=== PATIENT | female | born 1945 | race Caucasian/White ===

== ENCOUNTER 2022-09-21 08:00 | Outpatient (CLI) | payer BC, MEDICARE ==
[2022-09-21 18:40] LABS: BASOPHILS % (AUTO) 0.6 %; EOSINOPHILS # (AUTO) 0.1 10^3/uL (0.0-0.7); EOSINOPHILS % (AUTO) 1.6 %; HCT - HEMATOCRIT 40.8 % (37.0-47.0); HGB - HEMOGLOBIN 12.6 g/dL (12.0-16.0); LYMPHOCYTES # (AUTO) 1.3 10^3/uL (1.5-3.5); LYMPHOCYTES % (AUTO) 18.6 %; MEAN CORPUSCULAR HEMOGLOBIN 28.9 pg (27.0-31.0); MEAN CORPUSCULAR HGB CONC 30.9 g/dL (32.0-36.0); MEAN CORPUSCULAR VOLUME 93.6 fL (81.0-99.0); MEAN PLATELET VOLUME 10.4 fL (7.9-10.8); MONOCYTES # (AUTO) 0.6 10^3/uL (0.0-1.0); MONOCYTES % (AUTO) 9.2 %; NEUTROPHILS # (AUTO) 4.7 10^3/uL (1.5-6.6); NEUTROPHILS % (AUTO) 69.6 %; PLT - PLATELET COUNT 317 10^3/uL (130-450); RED BLOOD COUNT 4.36 10^6/uL (4.20-5.40); RED CELL DISTRIBUTION WIDTH 14.6 % (12.0-15.0); WHITE BLOOD COUNT 6.8 x10^3/uL (4.8-10.8)
[2022-09-21 19:00] LABS: ALBUMIN/GLOBULIN RATIO 1.1 (1.0-2.2); ALKALINE PHOSPHATASE 54 IU/L (42-121); ALT ALANINE AMINOTRANSFERASE 34 IU/L (10-60); AST ASPARTATE AMINOTRANSFERASE 33 IU/L (10-42); BILIRUBIN,TOTAL 1.1 mg/dL (0.2-1.0); BUN - BLOOD UREA NITROGEN 17 mg/dL (6-20); CALCIUM 8.9 mg/dL (8.5-10.3); CARBON DIOXIDE - CO2 25 mmol/L (21-32); CHLORIDE 103 mmol/L (101-111); CHOL/HDL RATIO 4.5 (<4.4); CHOLESTEROL 153 mg/dL; CREATININE 0.9 mg/dL (0.4-1.0); GFR - MDRD 61 (>89); GLUCOSE 115 mg/dL (70-100); HDL CHOLESTEROL 34 mg/dL; LDL CHOLESTEROL,CALCULATED 107 mg/dL; LDL/HDL RATIO 3.1 (<4.4); POTASSIUM 4.3 mmol/L (3.5-5.0); SODIUM 137 mmol/L (135-145); TOTAL PROTEIN 7.5 g/dL (6.7-8.2); TRIGLYCERIDES 62 mg/dL; VLDL CHOLESTEROL 12 mg/dL
[2022-09-21 19:12] LABS: THYROID STIMULATING HORMONE 1.56 uIU/mL (0.34-5.60)
== END 2022-09-21 23:59 | disposition home or self-care (01) ==
LOC: LAB.N 08:00
PROVIDERS: ATTEND Physician Assistant
DX: Z00.00 Encounter for general adult medical examination without abnormal findings (principal); R60.0 Localized edema
CPT/HCPCS: 36415; 80053; 80061; 83721; 84443; 85025

== ENCOUNTER 2022-09-25 16:48 | Inpatient (IN) | payer MEDICARE ==
[2022-09-25] MEDS ORDERED: diltiaZEM INJ 5 MG/ML VIAL IVP STA ×2 (17:44→18:09)
[2022-09-25] MEDS ORDERED: FUROSEMIDE 20 MG/2 ML VIAL IVP STA (17:44)
--- NOTE | 2022-09-25 17:46 | ED Physician Documentation ---
History of Present Illness - Stated complaint Stated Complaint: SOA/DEHYDRATED - Chief complaint Chief Complaint: General - Additonal information Additional information: 77-year-old female comes to the emergency department for evaluation of feeling dehydrated as well as lower extremity swelling. States that about 1 week ago she began having swelling in her lower legs. She thought that she was dehydrated because she was having pain behind her kidneys and when she would urinate she did not feel like it was a forceful stream. She would have to urinate very frequently thereafter about 45 minutes to an hour. She went to a local walk-in clinic with unremarkable labs a few days ago but given the persistence of symptoms, worsening lower extremity swelling and exertional dyspnea she comes to the ER today. Patient takes no prescribed medications. Has not been seen by a doctor in over 10 years. Non-smoker. Denies any history of heart failure. Denies chest pain. Review of Systems Constitutional: denies: Fever, Chills Cardiac: reports: Pedal edema. denies: Chest pain / pressure Respiratory: reports: Dyspnea. denies: Cough, Hemoptysis, Wheezing GI: denies: Abdominal Pain : reports: Frequency Skin: reports: Reviewed and negative Musculoskeletal: reports: Reviewed and negative PD PAST MEDICAL HISTORY - Present Medications Home Medications: Ambulatory Orders Medication Instructions Recorded Confirmed No Known Home Medications 09/25/22 09/25/22 - Allergies Allergies/Adverse Reactions: Allergies Allergy/AdvReac Type Severity Reaction Status Date / Time acetaminophen [From NyQuil] Allergy Hives Verified 09/25/22 17:12 dextromethorphan Allergy Hives Verified 09/25/22 17:12 [From NyQuil] doxylamine [From NyQuil] Allergy Hives Verified 09/25/22 17:12 pseudoephedrine [From NyQuil] Allergy Hives Verified 09/25/22 17:12 Sulfa (Sulfonamide Allergy Hives Verified 09/25/22 17:12 Antibiotics) PD ED PE NORMAL - General General: Alert and oriented X 3, No acute distress - HEENT HEENT: Atraumatic, Moist mucous membranes - Neck Neck: Supple, no meningeal sign, No adenopathy - Cardiac Cardiac: No murmur, Strong equal pulses. No: RRR (2/6 systolic murmur. Irregularly irregular. Appears to be A-fib on the monitor. Her 12 lead EKG however shows sinus tachycardia) - Respiratory Respiratory: No respiratory distress, Clear bilaterally - Abdomen Abdomen: Normal bowel sounds, Soft. 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 Eye Opening: Spontaneous Motor: Obeys Commands Verbal: Oriented GCS Score: 15 Results - Vitals Vitals: Vital Signs - 24 hr 09/25/22 09/25/22 09/25/22 17:02 17:53 18:08 Temperature 36.8 C Heart Rate 124 H 110 H 102 H Respiratory 18 24 18 Rate Blood Pressure 132/74 H 131/85 H 119/75 O2 Saturation 99 96 95 09/25/22 09/25/22 09/25/22 18:39 18:48 19:00 Temperature Heart Rate 109 H 111 H 106 H Respiratory 16 16 16 Rate Blood Pressure 126/83 H 126/83 H 119/75 O2 Saturation 99 100 99 09/25/22 19:05 Temperature Heart Rate 96 Respiratory 16 Rate Blood Pressure 132/107 H O2 Saturation 99 Oxygen O2 Source Room air - EKG (time done) 1715 EKG releavant findings:: EKG personally interpreted by author of this note. Relevant findings are: Rate: Rate (enter#) (116) Rhythm: Sinus tachycardia Intervals: LBBB QRS: Normal Compare to prior EKG: Old EKG unavailable Computer interpretation: Agree with computer 1813 EKG releavant findings:: EKG personally interpreted by author of this note. Relevant findings are: Rate: Rate (enter#) (99) Rhythm: NSR, Other (PACs) [place]: Other (LAFB) QRS: Poor R wave progression Ischemia: T wave inversion Compare to prior EKG: Changed from prior EKG, Other (Now showing sinus rhythm. LBBB has resolved.) Computer interpretation: Agree with computer - Labs Labs: Laboratory Tests 09/25/22 09/25/22 09/25/22 17:48 17:48 17:48 WBC 7.2 RBC 4.51 Hgb 13.0 Hct 41.0 MCV 90.9 MCH 28.8 MCHC 31.7 L RDW 14.4 Plt Count 305 MPV 9.8 Neut # (Auto) 4.7 Lymph # (Auto) 1.6 [place] # (Auto) 0.7 Eos # (Auto) 0.2 Baso # (Auto) 0.0 Absolute Nucleated RBC 0.00 Nucleated RBC % 0.0 PT 14.8 H INR 1.4 H Sodium 138 Potassium 4.2 Chloride 106 Carbon Dioxide 24 Anion Gap 8.0 BUN 20 Creatinine 1.0 Estimated GFR (MDRD) 54 L Glucose 129 H Calcium 8.9 Total Bilirubin 0.8 AST 31 ALT 32 Alkaline Phosphatase 52 Troponin I High Sens B-Natriuretic Peptide Total Protein 7.1 Albumin 3.6 Globulin 3.5 Albumin/Globulin Ratio 1.0 Lipase 35 TSH Free T4 09/25/22 09/25/22 09/25/22 17:48 17:48 17:48 WBC RBC Hgb Hct MCV MCH MCHC RDW Plt Count MPV Neut # (Auto) Lymph # (Auto) [place] # (Auto) Eos # (Auto) Baso # (Auto) Absolute Nucleated RBC Nucleated RBC % PT INR Sodium Potassium Chloride Carbon Dioxide Anion Gap BUN Creatinine Estimated GFR (MDRD) Glucose Calcium Total Bilirubin AST ALT Alkaline Phosphatase Troponin I High Sens 21.9 H* B-Natriuretic Peptide 2220 H Total Protein Albumin Globulin Albumin/Globulin Ratio Lipase TSH 2.04 Free T4 1.21 - Rads (name of study) cxr Relevant Findings:: Final report received (Diffuse interstitial prominence. Mild central vascular congestion. Small to moderate size bilateral pleural effusions.) PD Medical Decision Making - ED course Complexity details: reviewed results, re-evaluated patient, considered differential, d/w patient ED course: 77-year-old female presents emergency department for evaluation of bilateral lower extremity leg swelling that began 1 week ago. Patient thought that she may have been dehydrated as she found that when she urinated she only urinated a small amount and then had to urinate about an hour later. She went to a local walk-in clinic about 4 days ago and had labs obtained that were without acute obvious findings. Patient states that over the last week the swelling has worsened as well as the new development of exertional dyspnea. She denies chest pain. Patient denies taking any prescribed medications. She is not a smoker and has not been to the doctor for more than 10 years. On presentation to the emergency department she is alert and well-appearing though her initial heart rate showed a sinus tachycardia with a sustained rate in the 120s and a left bundle branch block. She was normotensive. Without fev er. Initially in the emergency department to obtain rate control I did give the patient 10 mg of carvedilol IV which quickly slowed her heart rate down into the 90s. With the lower heart rate her left bundle branch block resolved and the new EKG showed a sinus rhythm with poor R wave progression and some ST inversions in the lateral leads. Subsequently CBC, electrolytes BNP and troponin were all obtained. Per my interpretation she has a normal hemoglobin without anemia. She is got preserved renal function. She is a markedly elevated BNP of over 2000. Her troponin is 22. I suspect this is likely rate related demand ischemia. Her EKG is nonischemic. Chest x-ray is interpreted by the radiologist suggest some volume overload with pulmonary vascular congestion as well as small bilateral pleural effusions. The patient was also administered 20 mg of Lasix here in the emergency department for her anasarca. At this time she will be admitted for further evaluation and management of what appears to be acute congestive heart failure. 192: I have spoken with Dr. Chavez nighttime telehospitalist who agrees to see and admit the patient for further evaluation and management of her heart failure. Departure - Departure Disposition: ED Place in Observation Clinical Impression: Elevated brain natriuretic peptide (BNP) level, Elevated troponin I measurement Congestive heart failure Qualifiers: Heart failure type: unspecified Heart failure chronicity: acute Qualified Code(s): I50.9 - Heart failure, unspecified Condition: Serious Record reviewed to determine appropriate education?: Yes
[2022-09-25 17:56] LABS: BASOPHILS % (AUTO) 0.6 %; EOSINOPHILS # (AUTO) 0.2 10^3/uL (0.0-0.7); EOSINOPHILS % (AUTO) 2.9 %; LYMPHOCYTES # (AUTO) 1.6 10^3/uL (1.5-3.5); LYMPHOCYTES % (AUTO) 21.7 %; MEAN CORPUSCULAR HEMOGLOBIN 28.8 pg (27.0-31.0); MEAN CORPUSCULAR HGB CONC 31.7 g/dL (32.0-36.0); MEAN CORPUSCULAR VOLUME 90.9 fL (81.0-99.0); MEAN PLATELET VOLUME 9.8 fL (7.9-10.8); MONOCYTES # (AUTO) 0.7 10^3/uL (0.0-1.0); MONOCYTES % (AUTO) 9.1 %; NEUTROPHILS # (AUTO) 4.7 10^3/uL (1.5-6.6); NEUTROPHILS % (AUTO) 65.4 %; PLT - PLATELET COUNT 305 10^3/uL (130-450); RED BLOOD COUNT 4.51 10^6/uL (4.20-5.40); RED CELL DISTRIBUTION WIDTH 14.4 % (12.0-15.0); WHITE BLOOD COUNT 7.2 x10^3/uL (4.8-10.8)
[2022-09-25 18:02] LABS: INR 1.4 (0.8-1.2); PT - PROTHROMBIN TIME 14.8 secs (9.9-12.6)
[2022-09-25 18:11] LABS: ALBUMIN 3.6 g/dL (3.2-5.5); BILIRUBIN,TOTAL 0.8 mg/dL (0.2-1.0); CALCIUM 8.9 mg/dL (8.5-10.3); POTASSIUM 4.2 mmol/L (3.5-5.0); TOTAL PROTEIN 7.1 g/dL (6.7-8.2)
--- NOTE | 2022-09-25 18:19 | XRAY Report ---
PROCEDURE: Chest 1 View X-Ray INDICATIONS: Chest Pain TECHNIQUE: One view of the chest was acquired. COMPARISON: None. FINDINGS: Surgical changes and devices: None. Lungs and pleura: Diffuse interstitial prominence. Mild central vascular congestion. Small-moderate- sized bilateral pleural effusions. No pneumothorax. No focal consolidation. Mediastinum: Mediastinal contours appear normal. Heart size is normal. Bones and chest wall: No suspicious bony lesions. Overlying soft tissues appear unremarkable. IMPRESSION: Findings suggestive of pulmonary edema/CHF. Concurrent infectious or inflammatory process not exclude d if clinically appropriate. Reviewed by: Barry Larose MD on 09/25/2022 6:17 PM PDT Approved by: Barry Larose MD on 09/25/2022 6:17 PM PDT Station ID: [id number]
[2022-09-25 18:27] LABS: THYROID STIMULATING HORMONE 2.04 uIU/mL (0.34-5.60)
[2022-09-25 18:29] LABS: FREE T4 (FREE THYROXINE) 1.21 ng/dL (0.58-1.64)
[2022-09-25] MEDS ORDERED: SODIUM CHLORIDE FLUSH 0.9% 10 ML SYRINGE IVP PRN (19:32)
[2022-09-25] MEDS ORDERED: ONDANSETRON 4 MG/2 ML VIAL IVP PRN (19:32)
--- NOTE | 2022-09-25 19:56 | HISTORY & PHYSICAL EXAMINATION ---
Chief Complaint - Chief Complaint Chief Complaint: Leg swelling History of Present Illness - History of Present Illness HPI Comment/Other: 77 y old female with no PMH came with c/o swelling in both legs for about a week.C/O Shortness of breath on exertion. Denies chest pain, Fever, cough, GARCIA, nausea, vomiting, abdominal pain, symptoms On presentation, pt afebrile.Sao2 95% RA Labs showed BNP 2200 CXR showed pulmonary vascular congestion Patient is admitted due to acute CHF exacerbation Meds/Allgy - Home Medications Home Medications: Ambulatory Orders Medication Instructions Recorded Confirmed No Known Home Medications 09/25/22 09/25/22 - Allergies Allergies/Adverse Reactions: Allergies Allergy/AdvReac Type Severity Reaction Status Date / Time acetaminophen [From NyQuil] Allergy Hives Verified 09/25/22 17:12 dextromethorphan Allergy Hives Verified 09/25/22 17:12 [From NyQuil] doxylamine [From NyQuil] Allergy Hives Verified 09/25/22 17:12 pseudoephedrine [From NyQuil] Allergy Hives Verified 09/25/22 17:12 Sulfa (Sulfonamide Allergy Hives Verified 09/25/22 17:12 Antibiotics) Review of Systems - Other Findings Other Findings: 10 points systems were reviewed and were negative except mentioned in HPI Exam - Vital Signs Vital Signs: Vital Signs x48h Temp Pulse Resp BP Pulse Ox 09/25/22 19:05 96 16 132/107 H 99 09/25/22 19:00 106 H 16 119/75 99 09/25/22 18:48 111 H 16 126/83 H 100 09/25/22 18:39 109 H 16 126/83 H 99 09/25/22 18:08 102 H 18 119/75 95 09/25/22 17:53 110 H 24 131/85 H 96 09/25/22 17:02 36.8 C 124 H 18 132/74 H 99 - Physical Exam General Appearance: positive: No acute distress, Alert Eyes Bilateral: positive: Normal inspection ENT: positive: ENT inspection nml Neck: positive: Nml inspection Respiratory: positive: Chest non-tender, Breath sounds nml Cardiovascular: positive: Tachycardia Abdomen: positive: Nml bowel sounds Skin: positive: No rash Extremities: positive: Pedal edema Neurologic/Psychiatric: positive: Oriented x3, Motor nml Conclusion/Plan - Lab Results Fish Bones: 09/25/22 17:48 09/25/22 17:48 - Other Other Results/Comments: A: Acute CHF exacerbation Leg edema Tachycardia Elevated Trop Plan; Admit in tele Echo Lasix 40 mg iv q12h start metoprolol 25 mg po bid lisinopril 5 mg po qd monitor i/o, electrolyes Repeat BNP in am DVT prophylaxic: SCD Full code Pt is admitted as inpatient as more than 2 midnight stay is expected
[2022-09-25] MEDS: FUROSEMIDE 40 MG/4 ML VIAL IVP SCH (21:10)
[2022-09-25] MEDS: METOPROLOL TARTRATE 50 MG TABLET PO SCH (21:10)
[2022-09-25 22:08] LABS: CREATININE 0.9 mg/dL (0.4-1.0); POTASSIUM 4.2 mmol/L (3.5-5.0)
[2022-09-26] MEDS: SODIUM CHLORIDE FLUSH 0.9% 10 ML SYRINGE IVP SCH ×4 (00:33→23:51)
--- NOTE | 2022-09-26 01:48 | PROVIDER PROGRESS NOTE ---
Harvesting Supervisor Note - Harvesting Supervisor Note Harvesting Supervisor Note: Called by RN stating "Patient was admitted on 09/25 for new onset CHF. Please review tele strip at 1:09. Patient denies any chest pain. The rhythm strip appears to be 18 beat run of VTACH. However, please note patient states she had reached for a blanket at the end of bed during this time. Vitals 103/65, pulse 85. Last trop on admission 21.9, BNP 2220. Patient is now on lasix and lopressor. Patient is resting now. Do you want any new interventions at this time. Patient scheduled for ECHO today." Chart and EMR reviewed, at this time continue to monitor if has any symptoms or sustained V tach or Vtach more than 30 secs please call back.repeat troponin in am
[2022-09-26] MEDS ORDERED: ASPIRIN EC 81 MG TABLET PO STA (02:01)
[2022-09-26 05:27] LABS: CALCIUM 8.8 mg/dL (8.5-10.3); CREATININE 0.9 mg/dL (0.4-1.0); POTASSIUM 3.8 mmol/L (3.5-5.0)
[2022-09-26] MEDS: FUROSEMIDE 40 MG/4 ML VIAL IVP SCH (08:15)
[2022-09-26] MEDS: METOPROLOL TARTRATE 50 MG TABLET PO SCH (08:16)
[2022-09-26] MEDS ORDERED: lisinopriL 5 MG TABLET PO SCH (09:00)
--- NOTE | 2022-09-26 09:02 | PROVIDER PROGRESS NOTE ---
Assessment/Plan - Problem List (1) Tachycardia Assessment/Plan: This patient presented to the ER with a heart rate of 124. Despite receiving an IV Cardizem push, her heart rate remained 110. The patient has been admitted to Inpatient status due to work-up that showed new onset CHF, with underlying hemodynamic instability, that being tachycardia that persisted despite appropriate treatment. 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 Patient denied ever feeling palpitations. Work-up of the tachycardia has included checking thyroid function test which are normal. In addition her troponins are flat at 21 and 22 Plan: I will continue her on B-blockers. The doses still need adjustment to achieved HR closer to 60 at rest Continue with other CHF treatment Continue to monitor on telemetry. (2) Rate-related bundle branch block Assessment/Plan: The patient's admitting EKG showed sinus tachycardia at a rate of 124 with LBBB. After heart rate slowed somewhat another EKG was done that showed a narrow QRS complex. Plan: Awaiting Echo report since the LBBB is concerning for significant underlying sys tolic heart failure. (3) Acute systolic heart failure Assessment/Plan: Troponins were negative x2. Her TFTs are normal. At rest today, she has a heart rate of 98 after starting beta-blockers Her diuretics have produced a -500 cc fluid balance Her complete Echo was done today, and it showed four-chamber dilatation, severe global LV hypokinesis with EF ~10% and diastolic and grade 3 diastolic heart failure (restrictive pattern). Her RV function is also moderately depressed. She has severe mitral regurgitation. She has moderate pulm hypertension with PA pressure 56 mmHg. She has a dilated IVC. Possibly she has had longstanding mitral regurgitation leading to this heart failure. 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 She has not seen a doctor in 10 years so we do not know if she has had hypertension, that was untreated. And we do not know if she has severe underlying CAD. Today I learned that the patient's mother in her 50s of sudden cardiac and autopsy found severe three-vessel CAD Plan: I will adjust her beta-blockers for better heart rate control and use carvedilol. Continue her MARIELOS inhibitor. Continue her IV diuretics. Monitor I's and O's and daily weights. Follow her electrolytes and magnesium, replace if low. I will check her fasting lipid panel and treat per guidelines I will keep her on 1 baby aspirin daily With this severely depressed LVEF, and VT (see #4) optimal management would be to get a coronary angiogram JOANNE and be considered for a defibrillator. I will contact larger facilities with cardiology and cardiac computer lab para professional availability, and request that she be transferred. All of this was discussed with the patient. She agrees. I spent 45 min updating her at bedside and best friend Tony at bedside today as well. (4) V-tach Assessment/Plan: Overnight, on telemetry, the patient had an 18 beat run of monomorphic V. tach. She was asymptomatic with this. Her magnesium was normal and potassium normal. Her troponin was rechecked and was flat Plan: I will start her on Amiodarone oral loading dose Continue telemetry With her severely depressed LVEF and VTach, optimal management would be to get a coronary angiogram JOANNE and be considered for a defibrillator. I will contact larger facilities with cardiology and cardiac computer lab para professional availability, and request that she be transferred for further work-up. We reached out to [facility], [facility] and I got no callbacks to discuss her with a toaster element repairer or a Hospitalist to accept her yet (5) Anasarca Assessment/Plan: Patient described that she noticed leg swelling starting 2 weeks ago. She presented with 4+ pitting edema to her hips and up onto the abdominal wall. Since being started on IV diuretics yesterday, she has diuresed, but she is only about 500 cc negative. With leg elevation, her pitting edema is now up to her mid-upper thighs. Plan: I will change the order for IV BID diuretics to IV diuretic dosing at 0600 & 1400. Follow I's and O's and daily wt I will change her diet to a low-salt diet Continue with leg elevation. Continue to treat the underlying CHF - Current Meds Current Meds: Current Medications Generic Name Dose Route Start Last Admin Trade Name Freq PRN Reason Stop Dose Admin Furosemide 40 mg 09/25/22 21:00 09/26/22 08:15 Furosemide 40 Mg/4 Ml Vial IVP 40 mg BID STEFANY Administration Lisinopril 5 mg 09/26/22 09:00 09/26/22 08:15 Lisinopril 5 Mg Tablet PO 5 mg DAILY STEFANY Administration Metoprolol Tartrate 25 mg 09/25/22 21:00 09/26/22 08:16 Metoprolol Tartrate 50 Mg Tablet PO 25 mg BID STEFANY Administration Sodium Chloride 10 ml 09/26/22 01:00 09/26/22 08:16 Sodium Chloride Flush 0.9% 10 Ml Syringe IVP 10 ml 0100,0900,1700 STEFANY Administration - Lab Result Fish Bone Diagrams: 09/25/22 17:48 09/27/22 05:32 - Additional Planning My Orders: My Active Orders 09/26/22 08:46 Miscellaenous Nursing Order [RC] QSHIFT 09/26/22 Lunch DIET [Low Sodium Diet] [DIET] Subjective - Subjective Patient Reports: Feeling Better (She notices that the tops of her legs are no longer tense. She has not moved around enough to tell me if she has dyspnea with exertion.) Objective Vital Signs: Vital Signs - 24 hr 09/25/22 09/25/22 09/25/22 17:02 17:53 18:08 Temperature 36.8 C Heart Rate 124 H 110 H 102 H Heart Rate [ Brachial] Respiratory 18 24 18 Rate Blood Pressure 132/74 H 131/85 H 119/75 Blood Pressure [Right Brachial artery] O2 Saturation 99 96 95 09/25/22 09/25/22 09/25/22 18:39 18:48 19:00 Temperature Heart Rate 109 H 111 H 106 H Heart Rate [ Brachial] Respiratory 16 16 16 Rate Blood Pressure 126/83 H 126/83 H 119/75 Blood Pressure [Right Brachial artery] O2 Saturation 99 100 99 09/25/22 09/25/22 09/26/22 19:05 20:17 00:35 Temperature 36.7 C 36.5 C Heart Rate 96 Heart Rate [ 106 H 96 Brachial] Respiratory 16 18 18 Rate Blood Pressure 132/107 H Blood Pressure 120/76 103/73 [Right Brachial artery] O2 Saturation 99 98 98 09/26/22 09/26/22 09/26/22 01:23 04:53 07:18 Temperature 36.7 C 36.5 C Heart Rate Heart Rate [ 85 97 98 Brachial] Respiratory 16 16 Rate Blood Pressure Blood Pressure 103/65 122/77 123/72 [Right Brachial artery] O2 Saturation 95 97 09/26/22 08:03 Temperature 36.5 C Heart Rate Heart Rate [ 94 Brachial] Respiratory 19 Rate Blood Pressure Blood Pressure 120/69 [Right Brachial artery] O2 Saturation 98 Oxygen O2 Source Room air I&O (Last 24 Hrs): Intake and Output Totals x24h 09/24/22 09/25/22 09/26/22 23:59 23:59 23:59 Intake Total 250 650 Output Total 800 100 Balance -550 550 General: Alert, Oriented x3 HEENT: EOMI, Other (Dry lips and oral mucosa) Neck: Supple, No JVD Neuro: Alert, Non Focal Cardiovascular: Regular rate (Tachycardia), Other (Distant heart sounds due to large breasts) Respiratory: No respiratory distress, Rales (At both bases posterior) Abdomen: Normal bowel sounds, Soft Extremities: Other (3+ pitting edema to the mid thighs) - Results Results: Laboratory Results WBC 7.2 x10^3/uL (4.8-10.8) 09/25/22 17:48 RBC 4.51 10^6/uL (4.20-5.40) 09/25/22 17:48 Hgb 13.0 g/dL (12.0-16.0) 09/25/22 17:48 Hct 41.0 % (37.0-47.0) 09/25/22 17:48 MCV 90.9 fL (81.0-99.0) 09/25/22 17:48 MCH 28.8 pg (27.0-31.0) 09/25/22 17:48 MCHC 31.7 g/dL (32.0-36.0) L 09/25/22 17:48 RDW 14.4 % (12.0-15.0) 09/25/22 17:48 Plt Count 305 10^3/uL (130-450) 09/25/22 17:48 MPV 9.8 fL (7.9-10.8) 09/25/22 17:48 Neut # (Auto) 4.7 10^3/uL (1.5-6.6) 09/25/22 17:48 Lymph # (Auto) 1.6 10^3/uL (1.5-3.5) 09/25/22 17:48 [place] # (Auto) 0.7 10^3/uL (0.0-1.0) 09/25/22 17:48 Eos # (Auto) 0.2 10^3/uL (0.0-0.7) 09/25/22 17:48 Baso # (Auto) 0.0 10^3/uL (0.0-0.1) 09/25/22 17:48 Absolute Nucleated RBC 0.00 x10^3/uL 09/25/22 17:48 Nucleated RBC % 0.0 /100WBC 09/25/22 17:48 PT 14.8 secs (9.9-12.6) H 09/25/22 17:48 INR 1.4 (0.8-1.2) H 09/25/22 17:48 Sodium 139 mmol/L (135-145) 09/26/22 04:50 Potassium 3.8 mmol/L (3.5-5.0) 09/26/22 04:50 Chloride 106 mmol/L (101-111) 09/26/22 04:50 Carbon Dioxide 24 mmol/L (21-32) 09/26/22 04:50 Anion Gap 9.0 (6-13) 09/26/22 04:50 BUN 21 mg/dL (6-20) H 09/26/22 04:50 Creatinine 0.9 mg/dL (0.4-1.0) 09/26/22 04:50 Estimated GFR (MDRD) 61 (>89) L 09/26/22 04:50 Glucose 111 mg/dL (70-100) H 09/26/22 04:50 Calcium 8.8 mg/dL (8.5-10.3) 09/26/22 04:50 Magnesium 2.1 mg/dL (1.7-2.8) 09/26/22 04:50 Total Bilirubin 0.8 mg/dL (0.2-1.0) 09/25/22 17:48 AST 31 IU/L (10-42) 09/25/22 17:48 ALT 32 IU/L (10-60) 09/25/22 17:48 Alkaline Phosphatase 52 IU/L (42-121) 09/25/22 17:48 Troponin I High Sens 22.1 ng/L (2.3-14.8) H* 09/26/22 04:50 B-Natriuretic Peptide 2702 pg/mL (5-100) H 09/26/22 04:50 Total Protein 7.1 g/dL (6.7-8.2) 09/25/22 17:48 Albumin 3.6 g/dL (3.2-5.5) 09/25/22 17:48 Globulin 3.5 g/dL (2.1-4.2) 09/25/22 17:48 Albumin/Globulin Ratio 1.0 (1.0-2.2) 09/25/22 17:48 Lipase 35 U/L (22-51) 09/25/22 17:48 TSH 2.04 uIU/mL (0.34-5.60) 09/25/22 17:48 Free T4 1.21 ng/dL (0.58-1.64) 09/25/22 17:48
--- NOTE | 2022-09-26 11:01 | PHARMACY PROGRESS NOTE ---
- Best Possible Medication History Admit Date and Time: 09/25/221931 Processed by: Pharmacy Medication History completed: Yes Patient Interview: Completed Secondary Source(s): Pharmacy records As the person ultimately responsible for medication therapy, providers are able to order a medication from an existing home medication list in [facility] via the "Reconcile Routine" prior to Confirmation of that medication by production support analyst. Such practice is discouraged except when the physician, in their clinical judgment, deems that a medical need exists for a medication without regard to previous use.
[2022-09-26] MEDS: AMIODARONE 200 MG TABLET PO SCH (12:41)
[2022-09-26] MEDS: ZINC OXIDE 20% OINT 30 GM TUBE TOP PRN (12:42)
[2022-09-26] MEDS ORDERED: carvediloL 12.5 MG TABLET PO SCH (21:00)
[2022-09-27] MEDS: ZINC OXIDE 20% OINT 30 GM TUBE TOP PRN (05:30)
[2022-09-27] MEDS: SODIUM CHLORIDE FLUSH 0.9% 10 ML SYRINGE IVP SCH ×2 (05:33→16:20)
[2022-09-27 05:59] LABS: CALCIUM 8.4 mg/dL (8.5-10.3); CREATININE 0.8 mg/dL (0.4-1.0); MAGNESIUM 2.1 mg/dL (1.7-2.8); POTASSIUM 3.4 mmol/L (3.5-5.0)
[2022-09-27] MEDS ORDERED: FUROSEMIDE 40 MG/4 ML VIAL IVP SCH (06:00)
[2022-09-27] MEDS: ASPIRIN EC 81 MG TABLET PO SCH (09:07)
[2022-09-27] MEDS: AMIODARONE 200 MG TABLET PO SCH (09:07)
[2022-09-27] MEDS: carvediloL 3.125 MG TABLET PO SCH ×2 (09:08→20:18)
[2022-09-27] MEDS: SPIRONOLACTONE 25 MG TABLET PO SCH (09:09)
--- NOTE | 2022-09-27 13:37 | Discharge Plan ---
Discharge Plan Problem Reviewed?: Yes Disposition: 02 Transfer Acute Care Hosp No Smoking: If you smoke, Please STOP! Call for help. Follow-up with: Mya Youngblood ARNP [Primary Care Provider] -
--- NOTE | 2022-09-27 17:08 | DISCHARGE SUMMARY ---
Discharge Summary Admit Date: 09/25/22 Discharge Date: 09/29/22 Discharging Provider: Dr Monique Aguirre Primary Care Provider: Mya Youngblood NP Discharge Disposition: 02 Transfer Acute Care Hosp - [facility] History of Present Illness: 77 y old female with no PMH, but has not seen a doctor in 10 years, came to ER with c/o swelling in both legs for about 1-2 weeks. Also C/O Shortness of breath on exertion. Denies chest pain, Fever, cough, GARCIA, nausea, vomiting, abdominal pain, symptoms On presentation, pt afebrile. Sao2 95% RA, HR 126 in sinus rhythm. Exam shows raeles and she has anasarca, with pitting edema to her lower abdominal wall. Labs showed BNP 2200. CXR showed pulmonary vascular congestion. EKG showed LBBB. When her heart rate slowed slightly and her EKG was repeated, the LBBB had resolved, she had a narrow QRS with Nonspecific ST-T changes. Patient is admitted due to new onset CHF with new LBBB and a persistent tachycardia. - HOSPITAL COURSE Hospital Course: (1) Acute systolic heart failure Troponins were negative x2. Her TFTs were normal. She was started on iv diuretics. An Echocardiogram was done, and it showed four-chamber dilatation, severe global LV hypokinesis with LVEF ~10% and diastolic dysfunction, grade 3 diastolic heart failure (restrictive pattern). Her RV function was also moderately depressed. Echo showed severe mitral regurgitation and moderate pulm hypertension with PA pressure 56 mmHg. She has a dilated IVC. Possibly she had longstanding mitral regurgitation leading to this heart fail ure. 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 Also, she has not seen a doctor in 10 years so we do not know if she has had hypertension, that was untreated. And we do not know if she has severe underlying CAD. (We learned that the patient's mother in her 50s of sudden cardiac and at autopsy was found severe three-vessel CAD). This pt had a fasting lipid panel do ne 1 week ago, as an outpt. This showed an LDL of 107. She was started on Aspirin, Lipitor, beta-gregory carvedilol, MARIELOS inhibitor, Spironolactone, and the iv Lasix was changed to po Lasix. Her medications had to be spread out because of hypotension. (2) V-tach The patient had an 18 beat run of monomorphic V. tach and another shorter run ov VTach the following day. She was asymptomatic with these. Her magnesium was normal and potassium normal. Her hs-troponin was rechecked and these were "flat" at 21 and 22. I started her on Amiodarone 400 mg daily, oral loading do se. With her severely depressed LVEF and recurrent monomorphic VTach, optimal management was be to get a coronary angiogram JOANNE and be considered for a defibrillator. I did contact larger facilities with cardiology and cardiac school laboratory technician availability, and requested that she be transferred for further work-up. I spoke to Kelsie [employer] Library Information Technician Dr. Girard and he agreed. I then spoke to the Hospitalist at [facility] and the patient was accepted for transfer there. She waited 2 days for a bed to open there, before being transferred there in stable condition by ambulance. (3) Hypotension Patient had normal blood pressure at presentation. After being put on Lasix, Coreg, Lisinopril, and Spironolactone, she was running blood pressures of 88 systolic. By spreading out her meds, this has helped prevent hypotension. (4) Anasarca She presented with 4+ pitting edema to her hips and up onto the abdominal wall. After being started on IV diuretics, she diuresed, and with leg elevation, her pitting edema was at her mid-shins. (5) Rate-related bundle branch block The patient's admitting EKG showed sinus tachycardia at a rate of 124 with LBBB. After heart rate slowed somewhat another EKG was done that showed a narrow QRS complex, thus she has a rate-related BBB. The LBBB was concerning for significant underlying systolic heart failure. And the Echo confirmed that LVEF is ~10% (6) Tachycardia This patient presented to the ER with a heart rate of 124 in sinus rhythm. Despite receiving an IV Cardizem push, her heart rate remained 110. The patient was therefore admitted to Inpatient status due to work-up that showed new onset CHF, with underlying hemodynamic instability, that being tachycardia that persisted despite appropriate treatment. 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 Work-up of the tachycardia included checking thyroid function test which were normal. In addition her hs-troponins were "flat" at 21 and 22. She was put on B-blockers. The dose needed adjustment to achieved a HR closer to 60 at rest. At the time of discharge, heart rate was 70-80 at rest. - ALLERGIES Allergies/Adverse Reactions: Allergies Allergy/AdvReac Type Severity Reaction Status Date / Time acetaminophen [From NyQuil] Allergy Hives Verified 09/25/22 17:12 dextromethorphan Allergy Hives Verified 09/25/22 17:12 [From NyQuil] doxylamine [From NyQuil] Allergy Hives Verified 09/25/22 17:12 pseudoephedrine [From NyQuil] Allergy Hives Verified 09/25/22 17:12 Sulfa (Sulfonamide Allergy Hives Verified 09/25/22 17:12 Antibiotics) - MEDICATIONS Home Medications: Ambulatory Orders Medication Instructions Recorded Confirmed diphenhydrAMINE [Benadryl] 25 mg PO Q4-6H PRN 09/26/22 09/26/22 - PHYSICAL EXAM AT DISCHARGE General Appearance: positive: No acute distress, Alert Eyes Bilateral: positive: Normal inspection, PERRL, EOMI ENT: positive: ENT inspection nml, No signs of dehydration Neck: positive: Nml inspection, No JVD Cardiovascular: positive: Regular rate & rhythm, Systolic murmur Abdomen: positive: Non-tender, Nml bowel sounds, No distention Skin: positive: Warm, Dry Extremities: positive: Non-tender, Other (2+ edema to shins) Neurologic/Psychiatric: positive: Oriented x3, Motor nml - LABS Result Diagrams: 09/25/22 17:48 09/27/22 05:32 - DIAGNOSTIC IMAGING Diagnostic Imaging Results: Final report reviewed - FOLLOW UP Follow Up: This will be determined after her hospital stay at [facility]. - TIME SPENT Time Spent in Discharge (Minutes): 50
[2022-09-27] MEDS: lisinopriL 5 MG TABLET PO SCH (20:18)
[2022-09-28] MEDS: SODIUM CHLORIDE FLUSH 0.9% 10 ML SYRINGE IVP SCH ×3 (00:07→15:59)
[2022-09-28] MEDS: ZINC OXIDE 20% OINT 30 GM TUBE TOP PRN ×5 (00:07→23:44)
--- NOTE | 2022-09-28 09:04 | PROVIDER PROGRESS NOTE ---
Assessment/Plan - Problem List (1) Acute systolic heart failure Assessment/Plan: Troponins were negative x2. Her TFTs are normal. At rest today, she has a heart rate of 88 after getting beta-blockers for 3 days. Her diuretics have produced a -500 cc fluid balance Her complete Echo was done, and it showed four-chamber dilatation, severe global LV hypokinesis with EF ~10% and diastolic and grade 3 diastolic heart failure (restrictive pattern). Her RV function is also moderately depressed. She has severe mitral regurgitation. She has moderate pulm hypertension with PA pressure 56 mmHg. She has a dilated IVC. Possibly she has had longstanding mitral regurgitation leading to this heart failure. 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 Also, she has not seen a doctor in 10 years so we do not know if she has had hypertension, that was untreated. And we do not know if she has severe underlying CAD. Today I learned that the patient's mother in her 50s of sudden cardiac and autopsy found severe three-vessel CAD She had a fasting lipid panel done 1 week ago, as an outpt. This showed an LDL of 107. Plan: I will adjust her beta-blockers for better heart rate control and use carvedilol. Continue her MARIELOS inhibitor. Continue her diuretics, but I will switch IV twice daily to once daily oral Lasix because of her hypotension. Monitor I's and O's and daily weights. Follow her electrolytes and magnesium, replace if low. I will start a nightly statin, goal will be LDL <70 per ACC/AHA guidelines I will keep her on 1 baby aspirin daily With this severely depressed LVEF, and VT (see #2) optimal management would be to get a coronary angiogram JOANNE and be considered for a defibrillator. I will contact larger facilities with cardiology and cardiac ear mold laboratory technician availability, and request that she be transferred. (2) V-tach Assessment/Plan: The patient had an 18 beat run of monomorphic V. tach and another shorter run. She was asymptomatic with these. Her magnesium was normal and potassium normal. Her troponin was rechecked and was flat I started her on Amiodarone oral loading dose Plan: Continue Amiodarone orally Continue telemetry monitoring With her severely depressed LVEF and VTach, optimal management would be to get a coronary angiogram JOANNE and be considered for a defibrillator. I did contact larger facilities with cardiology and cardiac ear mold laboratory technician availability, and request that she be transferred for further work-up. Today I spoke to Kelsie Yomi Suppression Crew Leader Dr. Girard and he agreed. I then spoke to the Hospitalist at [facility] and the patient was accepted for transfer there. COBRA forms w ill be filled out. We are awaiting a bed to be open however (3) Hypotension Patient had normal blood pressure at presentation. Since being put on Lasix, Coreg, lisinopril, an spironolactone, she is running blood pressures of 88 systolic. Plan: I will spread out her meds to prevent hypotension. (4) Anasarca Assessment/Plan: Patient described that she noticed leg swelling starting 2 weeks ago. She presented with 4+ pitting edema to her hips and up onto the abdominal wall. Since being started on IV diuretics yesterday, she has diuresed, but she is only about 500 cc negative. With leg elevation, her pitting edema is now up to her mid-upper thighs. Plan: Cont diuretics. Follow I's and O's and daily wt Cont a low-salt diet Continue with leg elevation. Continue to treat the underlying CHF (5) Rate-related bundle branch block Assessment/Plan: The patient's admitting EKG showed sinus tachycardia at a rate of 124 with LBBB. After heart rate slowed somewhat another EKG was done that showed a narrow QRS complex. The LBBB was concerning for significant underlying systolic heart failure. And the Echo confirmed that LVEF is ~10% (6) Tachycardia Assessment/Plan: RESOLVED after B-gregory started This patient presented to the ER with a heart rate of 124. Despite receiving an IV Cardizem push, her heart rate remained 110. The patient was therefore admitted to Inpatient status due to work-up that showed new onset CHF, with underlying hemodynamic instability, that being tachycardia that persisted despite appropriate treatment. 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 Patient denied ever feeling palpitations. Work-up of the tachycardia has included checking thyroid function test which are normal. In addition her troponins were flat at 21 and 22 Plan: I will continue her on B-blockers. The doses still need adjustment to achieved HR closer to 60 at rest. Currently her resting heart rates are 70-90 Continue with other CHF treatment Continue to monitor on telemetry. - Current Meds Current Meds: Current Medications Generic Name Dose Route Start Last Admin Trade Name Freq PRN Reason Stop Dose Admin Amiodarone HCl 400 mg 09/26/22 13:00 09/27/22 09:07 Amiodarone 200 Mg Tablet PO 400 mg DAILY STEFANY Administration Aspirin 81 mg 09/27/22 09:00 09/27/22 09:07 Aspirin Ec 81 Mg Tablet PO 81 mg DAILY STEFANY Administration Carvedilol 9.375 mg 09/27/22 09:00 09/27/22 20:18 Carvedilol 3.125 Mg Tablet PO 9.375 mg BID STEFANY Administration Lisinopril 2.5 mg 09/27/22 21:00 09/27/22 20:18 Lisinopril 5 Mg Tablet PO 2.5 mg QPM STEFANY Administration Multi-Ingredient Ointment 1 applic 09/26/22 12:18 09/28/22 05:32 Zinc Oxide 20% Oint 30 Gm Tube TOP 1 applic PRN PRN Administration Skin Care Sodium Chloride 10 ml 09/26/22 01:00 09/28/22 00:07 Sodium Chloride Flush 0.9% 10 Ml Syringe IVP 10 ml 0100,0900,1700 STEFANY Administration Spironolactone 25 mg 09/27/22 09:00 09/27/22 09:09 Spironolactone 25 Mg Tablet PO 25 mg DAILY STEFANY Administration - Lab Result Fish Bone Diagrams: 09/25/22 17:48 09/27/22 05:32 - Additional Planning My Orders: My Active Orders 09/27/22 09:00 Aspirin EC [Ecotrin] 81 mg PO DAILY Spironolactone [Aldactone] 25 mg PO DAILY carvediloL [Coreg] 9.375 mg PO BID 09/27/22 13:37 Discharge [RC] .ONCE Initiate Discharge Checklist [RC] .ONCE 09/27/22 21:00 lisinopriL [Zestril] 2.5 mg PO QPM 09/28/22 09:00 Furosemide [Lasix] 20 mg PO DAILY Subjective - Subjective Patient Reports: Feeling Better (Less short of breath, less tense leg edema) Objective Vital Signs: Vital Signs - 24 hr 09/27/22 09/27/22 09/27/22 13:00 15:58 20:11 Temperature 36.5 C 36.7 C 36.9 C Heart Rate [ 84 89 96 Brachial] Respiratory 18 16 18 Rate Blood Pressure 97/62 108/63 108/64 [Right Brachial artery] O2 Saturation 99 97 99 09/27/22 09/28/22 09/28/22 23:40 05:19 08:26 Temperature 36.4 C L 36.4 C L 36.3 C L Heart Rate [ 88 85 82 Brachial] Respiratory 16 16 16 Rate Blood Pressure 93/60 94/59 L 95/50 L [Right Brachial artery] O2 Saturation 97 99 100 Oxygen O2 Source Room air I&O (Last 24 Hrs): Intake and Output Totals x24h 09/26/22 09/27/22 09/28/22 23:59 23:59 23:59 Intake Total 1590 1270 220 Output Total 1450 1950 400 Balance 140 -680 -180 General: Alert, Oriented x3 HEENT: Mucous membr. moist/pink Neck: Supple, No JVD Neuro: Alert, Non Focal Cardiovascular: Regular rate, No murmurs (Distant heart sounds due to large breasts) Respiratory: No respiratory distress, Breath sounds nml Abdomen: Soft Extremities: No clubbing, Other (2+ edema to the mid thighs) - Results Results: Laboratory Results WBC 7.2 x10^3/uL (4.8-10.8) 09/25/22 17:48 RBC 4.51 10^6/uL (4.20-5.40) 09/25/22 17:48 Hgb 13.0 g/dL (12.0-16.0) 09/25/22 17:48 Hct 41.0 % (37.0-47.0) 09/25/22 17:48 MCV 90.9 fL (81.0-99.0) 09/25/22 17:48 MCH 28.8 pg (27.0-31.0) 09/25/22 17:48 MCHC 31.7 g/dL (32.0-36.0) L 09/25/22 17:48 RDW 14.4 % (12.0-15.0) 09/25/22 17:48 Plt Count 305 10^3/uL (130-450) 09/25/22 17:48 MPV 9.8 fL (7.9-10.8) 09/25/22 17:48 Neut # (Auto) 4.7 10^3/uL (1.5-6.6) 09/25/22 17:48 Lymph # (Auto) 1.6 10^3/uL (1.5-3.5) 09/25/22 17:48 Finney # (Auto) 0.7 10^3/uL (0.0-1.0) 09/25/22 17:48 Eos # (Auto) 0.2 10^3/uL (0.0-0.7) 09/25/22 17:48 Baso # (Auto) 0.0 10^3/uL (0.0-0.1) 09/25/22 17:48 Absolute Nucleated RBC 0.00 x10^3/uL 09/25/22 17:48 Nucleated RBC % 0.0 /100WBC 09/25/22 17:48 PT 14.8 secs (9.9-12.6) H 09/25/22 17:48 INR 1.4 (0.8-1.2) H 09/25/22 17:48 Sodium 135 mmol/L (135-145) 09/27/22 05:32 Potassium 3.4 mmol/L (3.5-5.0) L 09/27/22 05:32 Chloride 102 mmol/L (101-111) 09/27/22 05:32 Carbon Dioxide 25 mmol/L (21-32) 09/27/22 05:32 Anion Gap 8.0 (6-13) 09/27/22 05:32 BUN 17 mg/dL (6-20) 09/27/22 05:32 Creatinine 0.8 mg/dL (0.4-1.0) 09/27/22 05:32 Estimated GFR (MDRD) 70 (>89) L 09/27/22 05:32 Glucose 106 mg/dL (70-100) H 09/27/22 05:32 Calcium 8.4 mg/dL (8.5-10.3) L 09/27/22 05:32 Magnesium 2.1 mg/dL (1.7-2.8) 09/27/22 05:32 Total Bilirubin 0.8 mg/dL (0.2-1.0) 09/25/22 17:48 AST 31 IU/L (10-42) 09/25/22 17:48 ALT 32 IU/L (10-60) 09/25/22 17:48 Alkaline Phosphatase 52 IU/L (42-121) 09/25/22 17:48 Troponin I High Sens 22.1 ng/L (2.3-14.8) H* 09/26/22 04:50 B-Natriuretic Peptide 1435 pg/mL (5-100) H 09/27/22 05:32 Total Protein 7.1 g/dL (6.7-8.2) 09/25/22 17:48 Albumin 3.6 g/dL (3.2-5.5) 09/25/22 17:48 Globulin 3.5 g/dL (2.1-4.2) 09/25/22 17:48 Albumin/Globulin Ratio 1.0 (1.0-2.2) 09/25/22 17:48 Lipase 35 U/L (22-51) 09/25/22 17:48 TSH 2.04 uIU/mL (0.34-5.60) 09/25/22 17:48 Free T4 1.21 ng/dL (0.58-1.64) 09/25/22 17:48
[2022-09-28] MEDS: FUROSEMIDE 20 MG TABLET PO SCH (09:38)
[2022-09-28] MEDS: AMIODARONE 200 MG TABLET PO SCH (09:38)
[2022-09-28] MEDS: ASPIRIN EC 81 MG TABLET PO SCH (09:38)
[2022-09-28] MEDS: SPIRONOLACTONE 25 MG TABLET PO SCH (09:38)
[2022-09-28] MEDS: carvediloL 3.125 MG TABLET PO SCH ×2 (09:55→21:02)
[2022-09-28] MEDS: lisinopriL 5 MG TABLET PO SCH (20:17)
[2022-09-28] MEDS ORDERED: ATORVASTATIN 40 MG TABLET PO SCH (21:00)
[2022-09-29] MEDS: SODIUM CHLORIDE FLUSH 0.9% 10 ML SYRINGE IVP SCH ×2 (00:03→08:26)
[2022-09-29 07:58] VITALS: BP 116/71
--- NOTE | 2022-09-29 08:22 | PROVIDER PROGRESS NOTE ---
Assessment/Plan - Problem List (1) Acute systolic heart failure Assessment/Plan: Troponins were negative x2. Her TFTs are normal. At rest today, she has a heart rate of 88 after getting beta-blockers for 3 days. Her diuretics have produced a -500 cc fluid balance Her complete Echo was done, and it showed four-chamber dilatation, severe global LV hypokinesis with EF ~10% and diastolic and grade 3 diastolic heart failure (restrictive pattern). Her RV function is also moderately depressed. She has severe mitral regurgitation. She has moderate pulm hypertension with PA pressure 56 mmHg. She has a dilated IVC. Possibly she has had longstanding mitral regurgitation leading to this heart failure. 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 Also, she has not seen a doctor in 10 years so we do not know if she has had hypertension, that was untreated. And we do not know if she has severe underlying CAD. I learned that the patient's mother in her 50s of sudden cardiac and autopsy found severe three-vessel CAD She had a fasting lipid panel done 1 week ago, as an outpt. This showed an LDL of 107. Plan: Cont her beta-blockers carvedilol. Continue her MARIELOS inhibitor. Continue po diuretics, that I switched from IV twice daily to once daily oral Lasix because of her hypotension. Monitor I's and O's and daily weights. Follow her electrolytes and magnesium, replace if low. Cont nightly Lipitor, goal will be LDL <70 per ACC/AHA guidelines I will keep her on 1 baby aspirin daily With this severely depressed LVEF, and VT (see #2) optimal management would be to get a coronary angiogram JOANNE and be considered for a defibrillator. I contacted larger facilities with cardiology and cardiac pit laborer availability, and request that she be transferred. She was accepted yesterday at [facility] but there were no beds. Today I also called [facility] and she is on a waiting list there as well. (2) V-tach Assessment/Plan: The patient had an 18 beat run of monomorphic V. tach and another shorter run. She was asymptomatic with these. Her magnesium was normal and potassium normal. Her troponin was rechecked and was flat I started her on Amiodarone oral loading dose Plan: Continue Amiodarone orally Continue telemetry monitoring With her severely depressed LVEF and VTach, optimal management would be to get a coronary angiogram JOANNE and be considered for a defibrillator. I did contact larger facilities with cardiology and cardiac pit laborer availability, and request that she be transferred for further work-up. On 09/27 I spoke to [facility] Dr. Girard and he agreed. I then spoke to the Hospitalist at [facility] and the patient was accepted for transfer there. We are still awaiting a bed to be open however. Today I also called [facility] and she is on a waiting list there as well. (3) Hypotension Patient had normal blood pressure at presentation. Since being put on Lasix, Coreg, lisinopril, an spironolactone, she was running blood pressures of 88 systolic. Plan: By spreading out her meds, this has helped prevent hypotension. (4) Anasarca Assessment/Plan: Patient described that she noticed leg swelling starting 2 weeks ago. She presented with 4+ pitting edema to her hips and up onto the abdominal wall. Since being started on IV diuretics yesterday, she has diuresed, but she is only about 500 cc negative. With leg elevation, her pitting edema is now up to her mid-shins Plan: Cont diuretics. Follow I's and O's and daily wt Cont a low-salt diet Continue with leg elevation. Continue to treat the underlying CHF (5) Rate-related bundle branch block Assessment/Plan: The patient's admitting EKG showed sinus tachycardia at a rate of 124 with LBBB. After heart rate slowed somewhat another EKG was done that showed a narrow QRS complex. The LBBB was concerning for significant underlying systolic heart failure. And the Echo confirmed that LVEF is ~10% (6) Tachycardia Assessment/Plan: RESOLVED after B-gregory started This patient presented to the ER with a heart rate of 124. Despite receiving an IV Cardizem push, her heart rate remained 110. The patient was therefore admitted to Inpatient status due to work-up that showed new onset CHF, with underlying hemodynamic instability, that being tachycardia that persisted despite appropriate treatment. 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 Patient denied ever feeling palpitations. Work-up of the tachycardia has included checking thyroid function test which are normal. In addition her troponins were flat at 21 and 22 Plan: I will continue her on B-blockers. The doses still need adjustment to achieved HR closer to 60 at rest. Currently her resting heart rates are 70-80 Continue with other CHF treatment Continue to monitor on telemetry. - Current Meds Current Meds: Current Medications Generic Name Dose Route Start Last Admin Trade Name Carmelita PRN Reason Stop Dose Admin Amiodarone HCl 400 mg 09/26/22 13:00 09/28/22 09:38 Amiodarone 200 Mg Tablet PO 400 mg DAILY STEFANY Administration Aspirin 81 mg 09/27/22 09:00 09/28/22 09:38 Aspirin Ec 81 Mg Tablet PO 81 mg DAILY STEFANY Administration Atorvastatin Calcium 20 mg 09/28/22 21:00 09/28/22 21:01 Atorvastatin 40 Mg Tablet PO 20 mg QPM STEFANY Administration Carvedilol 9.375 mg 09/27/22 09:00 09/28/22 21:02 Carvedilol 3.125 Mg Tablet PO 9.375 mg BID STEFANY Administration Furosemide 20 mg 09/28/22 09:00 09/28/22 09:38 Furosemide 20 Mg Tablet PO 20 mg DAILY STEFANY Administration Lisinopril 2.5 mg 09/27/22 21:00 09/28/22 20:17 Lisinopril 5 Mg Tablet PO Not Given QPM STEFANY Multi-Ingredient Ointment 1 applic 09/26/22 12:18 09/28/22 23:44 Zinc Oxide 20% Oint 30 Gm Tube TOP 1 applic PRN PRN Administration Skin Care Sodium Chloride 10 ml 09/26/22 01:00 09/29/22 00:03 Sodium Chloride Flush 0.9% 10 Ml Syringe IVP 10 ml 0100,0900,1700 STEFANY Administration Spironolactone 25 mg 09/27/22 09:00 09/28/22 09:38 Spironolactone 25 Mg Tablet PO 25 mg DAILY STEFANY Administration - Lab Result Fish Bone Diagrams: 09/25/22 17:48 09/27/22 05:32 - Additional Planning My Orders: My Active Orders 09/28/22 09:00 Furosemide [Lasix] 20 mg PO DAILY 09/28/22 21:00 Atorvastatin [Lipitor] 20 mg PO QPM 09/29/22 08:21 Discharge [RC] .ONCE 09/29/22 08:22 Initiate Discharge Checklist [RC] .ONCE Subjective - Subjective Patient Reports: Feeling Better (No further orthopnea. Notices significant dec rease in leg edema.) Objective Vital Signs: Vital Signs - 24 hr 09/28/22 09/28/22 09/28/22 08:26 09:36 13:37 Temperature 36.3 C L 36.4 C L Heart Rate [ 82 84 84 Brachial] Respiratory 16 18 16 Rate Blood Pressure 95/50 L 96/53 L 90/58 L [Right Brachial artery] O2 Saturation 100 100 100 09/28/22 09/28/22 09/28/22 15:55 20:04 23:58 Temperature 36.3 C L 36.4 C L 36.4 C L Heart Rate [ 81 87 84 Brachial] Respiratory 18 20 16 Rate Blood Pressure 93/57 L 95/63 130/68 [Right Brachial artery] O2 Saturation 100 99 96 09/29/22 09/29/22 04:29 07:50 Temperature 36.7 C 36.5 C Heart Rate [ 79 84 Brachial] Respiratory 16 18 Rate Blood Pressure 102/66 116/71 [Right Brachial artery] O2 Saturation 96 100 Oxygen O2 Source Room air I&O (Last 24 Hrs): Intake and Output Totals x24h 09/27/22 09/28/22 09/29/22 23:59 23:59 23:59 Intake Total 1270 1010 180 Output Total 1950 850 250 Balance -680 160 -70 General: Alert, Oriented x3 HEENT: Atraumatic, EOMI Neck: Supple, No JVD Neuro: Alert, Non Focal Cardiovascular: Other (Systolic murmur) Respiratory: No respiratory distress, Breath sounds nml Abdomen: Normal bowel sounds, Soft, No tenderness Extremities: No clubbing, Other (2+ edema to the midshins) - Results Results: Laboratory Results WBC 7.2 x10^3/uL (4.8-10.8) 09/25/22 17:48 RBC 4.51 10^6/uL (4.20-5.40) 09/25/22 17:48 Hgb 13.0 g/dL (12.0-16.0) 09/25/22 17:48 Hct 41.0 % (37.0-47.0) 09/25/22 17:48 MCV 90.9 fL (81.0-99.0) 09/25/22 17:48 MCH 28.8 pg (27.0-31.0) 09/25/22 17:48 MCHC 31.7 g/dL (32.0-36.0) L 09/25/22 17:48 RDW 14.4 % (12.0-15.0) 09/25/22 17:48 Plt Count 305 10^3/uL (130-450) 09/25/22 17:48 MPV 9.8 fL (7.9-10.8) 09/25/22 17:48 Neut # (Auto) 4.7 10^3/uL (1.5-6.6) 09/25/22 17:48 Lymph # (Auto) 1.6 10^3/uL (1.5-3.5) 09/25/22 17:48 Ceiba # (Auto) 0.7 10^3/uL (0.0-1.0) 09/25/22 17:48 Eos # (Auto) 0.2 10^3/uL (0.0-0.7) 09/25/22 17:48 Baso # (Auto) 0.0 10^3/uL (0.0-0.1) 09/25/22 17:48 Absolute Nucleated RBC 0.00 x10^3/uL 09/25/22 17:48 Nucleated RBC % 0.0 /100WBC 09/25/22 17:48 PT 14.8 secs (9.9-12.6) H 09/25/22 17:48 INR 1.4 (0.8-1.2) H 09/25/22 17:48 Sodium 135 mmol/L (135-145) 09/27/22 05:32 Potassium 3.4 mmol/L (3.5-5.0) L 09/27/22 05:32 Chloride 102 mmol/L (101-111) 09/27/22 05:32 Carbon Dioxide 25 mmol/L (21-32) 09/27/22 05:32 Anion Gap 8.0 (6-13) 09/27/22 05:32 BUN 17 mg/dL (6-20) 09/27/22 05:32 Creatinine 0.8 mg/dL (0.4-1.0) 09/27/22 05:32 Estimated GFR (MDRD) 70 (>89) L 09/27/22 05:32 Glucose 106 mg/dL (70-100) H 09/27/22 05:32 Calcium 8.4 mg/dL (8.5-10.3) L 09/27/22 05:32 Magnesium 2.1 mg/dL (1.7-2.8) 09/27/22 05:32 Total Bilirubin 0.8 mg/dL (0.2-1.0) 09/25/22 17:48 AST 31 IU/L (10-42) 09/25/22 17:48 ALT 32 IU/L (10-60) 09/25/22 17:48 Alkaline Phosphatase 52 IU/L (42-121) 09/25/22 17:48 Troponin I High Sens 22.1 ng/L (2.3-14.8) H* 09/26/22 04:50 B-Natriuretic Peptide 1435 pg/mL (5-100) H 09/27/22 05:32 Total Protein 7.1 g/dL (6.7-8.2) 09/25/22 17:48 Albumin 3.6 g/dL (3.2-5.5) 09/25/22 17:48 Globulin 3.5 g/dL (2.1-4.2) 09/25/22 17:48 Albumin/Globulin Ratio 1.0 (1.0-2.2) 09/25/22 17:48 Lipase 35 U/L (22-51) 09/25/22 17:48 TSH 2.04 uIU/mL (0.34-5.60) 09/25/22 17:48 Free T4 1.21 ng/dL (0.58-1.64) 09/25/22 17:48
[2022-09-29] MEDS: SPIRONOLACTONE 25 MG TABLET PO SCH (08:24)
[2022-09-29] MEDS: FUROSEMIDE 20 MG TABLET PO SCH (08:24)
[2022-09-29] MEDS: carvediloL 3.125 MG TABLET PO SCH (08:25)
[2022-09-29] MEDS: AMIODARONE 200 MG TABLET PO SCH (08:25)
[2022-09-29] MEDS: ASPIRIN EC 81 MG TABLET PO SCH (08:26)
== END 2022-09-29 10:19 | disposition short-term general hospital (02) | DRG 292 ==
LOC: ED 16:48 → MS2 19:32
PROVIDERS: ADMIT Internal Medicine; ATTEND Internal Medicine
DX: I50.9 Heart failure, unspecified (principal); R77.8 Other specified abnormalities of plasma proteins; E86.0 Dehydration; R60.0 Localized edema; R00.0 Tachycardia, unspecified; I50.21 Acute systolic (congestive) heart failure; I49.1 Atrial premature depolarization; I44.4 Left anterior fascicular block; I47.20 Ventricular tachycardia, unspecified; I44.7 Left bundle-branch block, unspecified; I95.9 Hypotension, unspecified; Z82.49 Family history of ischemic heart disease and other diseases of the circulatory system
CPT/HCPCS: 36415; 71045; 80048; 80053; 83690; 83735; 83880; 84439; 84443; 84484; 85025; 85610; 93005; 93306; 96374; 96375; 96376; 99285; A9270

== ENCOUNTER 2022-10-08 13:04 | Outpatient (CLI) | payer MEDICARE ==
[2022-10-08 13:31] LABS: CALCIUM 9.3 mg/dL (8.5-10.3); CREATININE 0.9 mg/dL (0.4-1.0); POTASSIUM 4.2 mmol/L (3.5-5.0)
== END 2022-10-08 13:05 | disposition home or self-care (01) ==
LOC: LAB 13:04
PROVIDERS: ATTEND Internal Medicine Advanced Heart Failure and Transplant Cardiology
DX: I50.9 Heart failure, unspecified (principal)
CPT/HCPCS: 36415; 80048

== ENCOUNTER 2023-09-18 06:11 | Outpatient (CLI) | payer MEDICARE ==
[2023-09-18 06:28] LABS: BASOPHILS % (AUTO) 0.3 %; EOSINOPHILS # (AUTO) 0.3 10^3/uL (0.0-0.7); EOSINOPHILS % (AUTO) 4.4 %; HCT - HEMATOCRIT 44.6 % (37.0-47.0); HGB - HEMOGLOBIN 14.4 g/dL (12.0-16.0); LYMPHOCYTES # (AUTO) 1.6 10^3/uL (1.5-3.5); LYMPHOCYTES % (AUTO) 20.9 %; MEAN CORPUSCULAR HEMOGLOBIN 29.4 pg (27.0-31.0); MEAN CORPUSCULAR HGB CONC 32.3 g/dL (32.0-36.0); MEAN CORPUSCULAR VOLUME 91.2 fL (81.0-99.0); MEAN PLATELET VOLUME 8.9 fL (7.9-10.8); MONOCYTES # (AUTO) 0.7 10^3/uL (0.0-1.0); MONOCYTES % (AUTO) 9.8 %; NEUTROPHILS # (AUTO) 4.9 10^3/uL (1.5-6.6); NEUTROPHILS % (AUTO) 64.3 %; PLT - PLATELET COUNT 231 10^3/uL (130-450); RED BLOOD COUNT 4.89 10^6/uL (4.20-5.40); RED CELL DISTRIBUTION WIDTH 13.3 % (12.0-15.0); WHITE BLOOD COUNT 7.6 x10^3/uL (4.8-10.8)
[2023-09-18 06:53] LABS: ALBUMIN 4.5 g/dL (3.2-5.5); ALBUMIN/GLOBULIN RATIO 1.5 (1.0-2.2); ALKALINE PHOSPHATASE 66 IU/L (42-121); ALT ALANINE AMINOTRANSFERASE 13 IU/L (10-60); AST ASPARTATE AMINOTRANSFERASE 21 IU/L (10-42); BILIRUBIN,TOTAL 0.8 mg/dL (0.2-1.0); BUN - BLOOD UREA NITROGEN 19 mg/dL (6-20); CALCIUM 9.9 mg/dL (8.5-10.3); CARBON DIOXIDE - CO2 30 mmol/L (21-32); CHLORIDE 101 mmol/L (101-111); CHOL/HDL RATIO 3.2 (<4.4); CHOLESTEROL 146 mg/dL; CREATININE 0.9 mg/dL (0.6-1.3); GFR - MDRD 61 (>89); GLUCOSE 118 mg/dL (74-104); HDL CHOLESTEROL 45 mg/dL; LDL CHOLESTEROL,CALCULATED 78 mg/dL; LDL/HDL RATIO 1.7 (<4.4); POTASSIUM 4.3 mmol/L (3.5-4.5); SODIUM 137 mmol/L (135-145); TOTAL PROTEIN 7.6 g/dL (6.4-8.9); TRIGLYCERIDES 116 mg/dL (48-352); VLDL CHOLESTEROL 23 mg/dL
[2023-09-18 07:05] LABS: THYROID STIMULATING HORMONE 2.92 uIU/mL (0.34-5.60)
== END 2023-09-18 06:12 | disposition home or self-care (01) ==
LOC: LAB 06:11
PROVIDERS: ATTEND Registered Nurse
DX: I50.9 Heart failure, unspecified (principal); Z13.228 Encounter for screening for other metabolic disorders; Z13.220 Encounter for screening for lipoid disorders; Z13.29 Encounter for screening for other suspected endocrine disorder; Z13.0 Encounter for screening for diseases of the blood and blood-forming organs and certain disorders involving the immune mechanism
CPT/HCPCS: 36415; 80053; 80061; 83721; 83880; 84443; 85025